=== PATIENT | male | born 1955 | race American Indian/Alaskan Native ===

== ENCOUNTER 2020-09-08 07:53 | Outpatient (CLI) | payer MEDICARE, OTHER ==
[2020-09-08] MEDS ORDERED: METOPROLOL TARTRATE 5 MG/5 ML INJ IV NR (10:01)
[2020-09-08] MEDS ORDERED: NITROGLYCERIN 0.4 MG TAB SUBL SL NR (10:01)
[2020-09-08] MEDS ORDERED: ATROPINE 0.1% (1 MG/10 ML) CARDIAC SYRINGE ONE (10:14)
[2020-09-08 11:30] VITALS: BP 193/82
--- NOTE | 2020-09-08 15:46 | Cat Scan Report ---
Limited CT chest Indication: Limited evaluation of the chest associated with cardiac CT exam. Technique: Limited axial imaging performed through the chest for coronary CT examination. Please refe r to the official CT report for further details. All CT scans at this location are performed using CT dose reduction for ALARA by means of automated exposure control. Findings: No pathologic adenopathy. Visualized lungs are clear. There are degenerative changes in the spine with no acute osseous abnormality. Limited imaging through the upper abdomen shows nothing acute. Impression: No significant incidental finding. Signer Name: Ry Syed MD Signed: 09/08/2020 3:25 PM Workstation Name: [id number]
== END 2020-09-08 07:54 | disposition home or self-care (01) ==
LOC: CT 07:53
PROVIDERS: ATTEND Specialist
DX: I48.0 Paroxysmal atrial fibrillation (principal); M51.34 Other intervertebral disc degeneration, thoracic region; Z98.890 Other specified postprocedural states
CPT/HCPCS: 75574; Q9967; J0461

== ENCOUNTER 2021-01-05 09:36 | Outpatient (CLI) | payer MEDICARE, OTHER ==
[2021-01-05 11:09] LABS: Blood Urea Nitrogen 22 mg/dL (9-20)
--- NOTE | 2021-01-05 13:00 | Cat Scan Report ---
CTA ABDOMEN, PELVIS, AND LOWER EXTREMITIES INDICATION / CLINICAL INFORMATION: ABDOMINAL AORTIC ANEURYSM 100 ML OMNI 350 . TECHNIQUE: Axial CT images were obtained through the abdomen, pelvis and lower extremities after injection of 10 0 cc IV contrast. 3 plane MIP / 3D reconstructions were produced. All CT scans at this location are p erformed using CT dose reduction for ALARA by means of automated exposure control. COMPARISON: None FINDINGS: CTA ABDOMEN: Abdominal Aorta: No significant abnormality. Celiac Artery: No significant abnormality. Superior Mesenteric Artery: No significant abnormality. Right Renal Artery: No significant abnormality. Left Renal Artery: No significant abnormality. Inferior Mesenteric Artery: No significant abnormality. CTA PELVIS: RIGHT: - Common Iliac Artery: Mild partially calcified plaques but no stenosis or aneurysm. - Internal Iliac Artery: No significant abnormality. - External Iliac Artery: No significant abnormality. LEFT: - Common Iliac Artery: No significant abnormality - Internal Iliac Artery: No significant abnormality. - External Iliac Artery: No significant abnormality. CTA LOWER EXTREMITIES: RIGHT LOWER EXTREMITY: - Common Femoral Artery: No significant abnormality. - Superficial Femoral Artery: Minimal partially calcified plaques. No stenosis, dissection or aneurys m. - Profunda Femoral Artery: No significant abnormality. - Popliteal Artery: No significant abnormality. - Anterior Tibial Artery: Moderate to severe calcific plaques are noted in the distal anterior tibial artery with eventual occlusion just above the ankle. The dorsalis pedis is reconstituted distally. - Tibioperoneal Trunk: No significant abnormality. - Posterior Tibial Artery: No significant abnormality. - Peroneal Artery: No significant abnormality. - Ankle runoff: Three vessel. LEFT LOWER EXTREMITY: - Common Femoral Artery: No significant abnormality. - Superficial Femoral Artery: Minimal partially calcified plaques. No stenosis, dissection or aneurys m. - Profunda Femoral Artery: No significant abnormality. - Popliteal Artery: No significant abnormality. - Anterior Tibial Artery: Moderate to severe calcific plaques are noted in the distal anterior tibial artery with eventual occlusion just above the ankle. The dorsalis pedis artery is reconstituted dist ally. - Tibioperoneal Trunk: No significant abnormality. - Posterior Tibial Artery: No significant abnormality. - Peroneal Artery: No significant abnormality. - Ankle runoff: Three vessel. IMPRESSION: No evidence for abdominal aortic aneurysm. Moderate to severe atherosclerotic disease is identified in the distal anterior tibial arteries bilat erally with eventual occlusion just above the cells. Signer Name: Ed Christian Jr, MD Signed: 01/05/2021 12:56 PM Workstation Name: [id number]
== END 2021-01-05 09:37 | disposition home or self-care (01) ==
LOC: CT 09:36
PROVIDERS: ATTEND Specialist
DX: I70.203 Unspecified atherosclerosis of native arteries of extremities, bilateral legs (principal); I71.4 Abdominal aortic aneurysm, without rupture
CPT/HCPCS: 36415; 75635; 82565; 84520; Q9967